=== PATIENT | male | born 1940 | race Caucasian/White ===

== ENCOUNTER 2019-05-01 18:44 | Inpatient (IN) | payer OTHER ==
[~2019-05-01] VITALS: Ht 177.8 cm; Wt 92.4 kg
[2019-05-01 20:34] LABS: BASOPHILS % (AUTO) 0.2 % (0.0-5.0); EOSINOPHILS % (AUTO) 0.6 % (0.0-8.0); HEMATOCRIT 36.8 % (42-54); LYMPHOCYTES % (AUTO) 5.3 % (21.0-51.0); MEAN CORPUSCULAR HEMOGLOBIN 31.1 pg (27.0-33.0); MEAN CORPUSCULAR HGB CONC 33.9 g/dL (32.0-36.0); MEAN CORPUSCULAR VOLUME 91.6 fL (79-99); NEUTROPHILS % (AUTO) 83.9 % (40.0-77.0); NUCLEATED RED BLOOD CELLS 0.1 % (0.0-0.19); PLATELET COUNT (AUTO) 199 K/uL (130-400); RED BLOOD CELL COUNT(AUTO) 4.02 MIL/uL (4.50-6.20); RED CELL DISTRIBUTION WIDTH 16.7 % (11.0-15.5); WHITE BLOOD COUNT (AUTO) 6.7 K/uL (4.8-10.8)
[2019-05-01 20:44] LABS: APPEARANCE,URINE Cloudy (CLEAR); BILIRUBIN,URINE Negative (NEGATIVE); COLOR,URINE Yellow (YELLOW); GLUCOSE, URINE (UA) Negative (NEGATIVE); KETONES,URINE 15 mg/dL (NEGATIVE); LEUKOCYTE ESTERASE ,URINE Large (NEGATIVE); NITRATE,URINE Positive (NEGATIVE); OCCULT BLOOD,URINE Moderate (NEGATIVE); PH,URINE 5.5 (5.0-8.0); PROTEIN,URINE POS 1+ mg/dL (NEGATIVE)
[2019-05-01 20:44] LABS: CREATININE 1.4 mg/dL (0.5-1.5); POTASSIUM 3.5 mmol/L (3.5-5.1)
[2019-05-01 20:48] LABS: INR 1.09 (0.85-1.15); PARTIAL THROMBOPLASTIN TIME 29.6 SEC (26.3-35.5); PROTHROMBIN TIME 11.4 SEC (9.6-11.6)
[2019-05-01 20:50] LABS: ALBUMIN 3.9 g/dL (3.5-5.0); BILIRUBIN,TOTAL 1.1 mg/dL (0.2-1.0); TOTAL PROTEIN, SERUM 7.2 g/dL (6.0-8.3)
[2019-05-01 21:08] LABS: BACTERIA,URINE Moderate /HPF (None Seen); SQUAMOUS EPITHELIAL CELL,UR Rare /HPF (0-2); WBC,URINE 26-50 /HPF (0-1)
[2019-05-01] MEDS ORDERED: LEVOFLOXACIN 500 MG/D5W 100 ML 100 ML ONE (21:19)
[2019-05-01] MEDS ORDERED: KETOROLAC TROMETHAMINE 15MG/ML ONE (22:57)
[2019-05-01] MEDS: SODIUM CHLORIDE 0.9% 1000ML 1,000 ML IV SCH (23:45)
[2019-05-01] MEDS ORDERED: HYDROCODONE/ACETAMINOPHEN 5/325 MG TAB PO PRN (23:45)
[2019-05-01] MEDS ORDERED: ACETAMINOPHEN 325 MG TAB PO PRN (23:45)
[2019-05-01] MEDS ORDERED: ONDANSETRON HCL 4 MG/2 ML VIAL IVP PRN (23:45)
[2019-05-01] MEDS ORDERED: HYDRALAZINE HCL 20 MG/ML VIAL IV PRN (23:45)
[2019-05-02] MEDS ORDERED: SODIUM CHLORIDE 0.9% 1000ML 1,000 ML IV ONE (00:02)
--- NOTE | 2019-05-02 01:50 | NUR ---
RECEIVED PT FROM ED. TRANSFERRED VIA BED. PT AAOX3. VS STABLE, ON RA. IV TO RIGHT AC, CURRENTLY SL. PATIENT MED BAG AND WALLET WITH HIM. WILL CONTINUE TO CLOSELY MONITOR PATIENT
[2019-05-02 01:55] VITALS: BP 143/86
[2019-05-02 04:00] VITALS: BP 131/73
[2019-05-02] MEDS ORDERED: RIVA20TA PO (04:18)
[2019-05-02] MEDS ORDERED: TAMS-1 PO (04:18)
[2019-05-02] MEDS ORDERED: ATOR10 PO (04:18)
[2019-05-02] MEDS ORDERED: FURO40TA5 PO (04:18)
[2019-05-02] MEDS ORDERED: PIOG30TA70 PO (04:18)
[2019-05-02] MEDS ORDERED: METO-391 PO (04:18)
[2019-05-02] MEDS ORDERED: PARO7.5C2 PO (04:18)
[2019-05-02] MEDS ORDERED: LISI1TAB28 PO (04:18)
[2019-05-02] MEDS ORDERED: GLIM4TAB5 PO (04:18)
[2019-05-02] MEDS ORDERED: ASPI-1197 PO (04:18)
[2019-05-02] MEDS ORDERED: GLUCAGON 1MG KIT 1 MG ML IM PRN (06:00)
[2019-05-02] MEDS ORDERED: DEXTROSE 50%-WATER 50 ML DISP.SYRIN IV PRN (06:00)
[2019-05-02 06:26] LABS: HEMATOCRIT 33.7 % (42-54); MEAN CORPUSCULAR HEMOGLOBIN 30.9 pg (27.0-33.0); MEAN CORPUSCULAR HGB CONC 33.5 g/dL (32.0-36.0); MEAN CORPUSCULAR VOLUME 92.3 fL (79-99); PLATELET COUNT (AUTO) 167 K/uL (130-400); RED BLOOD CELL COUNT(AUTO) 3.66 MIL/uL (4.50-6.20); RED CELL DISTRIBUTION WIDTH 16.9 % (11.0-15.5); WHITE BLOOD COUNT (AUTO) 7.7 K/uL (4.8-10.8)
[2019-05-02 06:34] LABS: CREATININE 1.6 mg/dL (0.5-1.5); POTASSIUM 3.6 mmol/L (3.5-5.1)
[2019-05-02 07:34] LABS: EOSINOPHILS % (MANUAL) 1 % (1-6); LYMPHOCYTES % (MANUAL) 7 % (22-44); MAN.DIFF COMMENT-IMPRESSION MANUAL DIFFERENTIAL; MONOCYTES % (MANUAL) 22 % (2-9); PLATELET MORPHOLOGY COMMENT ADEQUATE; SEGMENTED NEUTROPHILS % 70 % (40-70)
[2019-05-02 08:00] VITALS: BP 144/93
[2019-05-02] MEDS: INSULIN HUMULIN R 100 UNIT/ML 3ML SQ SCH ×4 (08:00→21:21)
[2019-05-02] MEDS ORDERED: ENOXAPARIN SODIUM 30 MG/0.3 ML SQ SCH (09:00)
[2019-05-02] MEDS ORDERED: LEVOFLOXACIN 500 MG/D5W 100 ML 100 ML IV SCH ×2 (09:00)
[2019-05-02] MEDS: MEROPENEM 500 MG VIAL IVP SCH ×2 (09:38→21:09)
[2019-05-02] MEDS: FAMOTIDINE 20MG TAB 20 MG TAB PO SCH ×2 (09:39→21:09)
[2019-05-02] MEDS: SODIUM CHLORIDE 0.9% 1000ML 1,000 ML IV SCH (09:45)
[2019-05-02 11:00] VITALS: BP 142/81
--- NOTE | 2019-05-02 14:32 | NUR ---
RD Notification - Trigger Pt admitted for UTI, OBS-status, Hx of HTN, DM. Pt tolerating 75gm CCD with no report of GI distress and PO intake at 100%, as per Pt. Pt reports continues to be hungry after meals; RD rec to add snacks between meals. Pt with request of Glucerna BID (No Chocolate). Pt LBM 05/01/19. Pt monitored labs: BUN 29, Cr 1.6, GFR 45, Glu 215, Alb 3.9. RD to continue to monitor. Please notify as additional nutrition concerns arise. Thank you. Addendum: 05/02/19 at [address] Amended: Links added.
[2019-05-02] MEDS: MORPHINE SULFATE 2 MG/ML 1ML SYG IVP PRN (15:20)
[2019-05-02 16:00] VITALS: BP 155/76
--- NOTE | 2019-05-02 17:00 | NUR ---
INITIAL MET W PT ALONE AAOX3, LIVES ALONE, BROTHER JOSHUA AND SISTER IN LAW TERESA 'LIVE NEXT DOOR', TERESA WILL PROVIDE TRANSPORT HOME , PHONE NUMBERS/CONTACTS CORRECTED ON F/SHEET AND FAXED TO REGISTRATION-- PT IS INDP IN [place], HAS A WALKER, RECENT PURCHASE, RECENT DECLINE IN FUNCTION; ADVISD HIM MAY NEED SNF, DECLINING. WILL RE VISIT WHEN PLAN OF CARE MORE DEFINED. CULTURES PENDING CM TO FOLLOW Addendum: 05/02/19 at 7080 by ISAÍAS ASENCIO RN CM Amended: Links added.
[2019-05-02 20:00] VITALS: BP 173/118
[2019-05-02] MEDS: LEVOFLOXACIN 250 MG/D5W 50ML 50 ML IVPB SCH (21:09)
[2019-05-02] MEDS: METOPROLOL TARTRATE 25 MG TAB PO SCH (21:09)
[2019-05-02] MEDS: TAMSULOSIN HCL 0.4 MG CAP.ER.24H PO SCH (21:09)
[2019-05-02] MEDS: ATORVASTATIN CALCIUM 10 MG TABLET PO SCH (21:09)
[2019-05-03] VITALS (9 sets, daily range): BP systolic 123–161; BP diastolic 69–99
[2019-05-03 05:08] LABS: HEMATOCRIT 33.3 % (42-54); MEAN CORPUSCULAR HEMOGLOBIN 30.9 pg (27.0-33.0); MEAN CORPUSCULAR HGB CONC 33.9 g/dL (32.0-36.0); MEAN CORPUSCULAR VOLUME 91.3 fL (79-99); PLATELET COUNT (AUTO) 160 K/uL (130-400); RED BLOOD CELL COUNT(AUTO) 3.65 MIL/uL (4.50-6.20); RED CELL DISTRIBUTION WIDTH 17.4 % (11.0-15.5); WHITE BLOOD COUNT (AUTO) 6.6 K/uL (4.8-10.8)
[2019-05-03 05:28] LABS: CREATININE 1.5 mg/dL (0.5-1.5); PHOSPHORUS 2.6 mg/dL (2.5-4.9); POTASSIUM 3.6 mmol/L (3.5-5.1)
[2019-05-03] MEDS: INSULIN HUMULIN R 100 UNIT/ML 3ML SQ SCH ×4 (06:27→22:03)
[2019-05-03] MEDS: MEROPENEM 500 MG VIAL IVP SCH (07:41)
[2019-05-03] MEDS: FAMOTIDINE 20MG TAB 20 MG TAB PO SCH ×2 (07:42→22:03)
[2019-05-03] MEDS: PAROXETINE HCL 20 MG TABLET PO SCH (07:42)
[2019-05-03] MEDS: ASPIRIN 81MG TAB.CHEW PO SCH (07:42)
[2019-05-03] MEDS: METOPROLOL TARTRATE 25 MG TAB PO SCH ×2 (07:42→22:02)
[2019-05-03] MEDS: SODIUM CHLORIDE 0.9% 1000ML 1,000 ML IV SCH ×2 (07:43→17:55)
--- NOTE | 2019-05-03 08:00 | NUR ---
SCABS ON RIGHT KNEES AND BRUISING ON BACK FROM FALL AT HOME Addendum: 05/03/19 at 1815 by CHUY GREGORY RN RN Amended: Links added.
--- NOTE | 2019-05-03 08:17 | NUR ---
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
[2019-05-03] MEDS ORDERED: FUROSEMIDE 40 MG TABLET PO SCH (09:00)
[2019-05-03] MEDS ORDERED: RIVAROXABAN 20 MG TABLET PO SCH (09:00)
[2019-05-03] MEDS ORDERED: LEVOFLOXACIN 250 MG/D5W 50ML 50 ML IVPB SCH (09:00)
[2019-05-03] MEDS: CEFTRIAXONE SODIUM 1 GM IVP SCH (09:38)
[2019-05-03] MEDS: LEVOFLOXACIN 250 MG/D5W 50ML 50 ML IVPB SCH (22:02)
[2019-05-03] MEDS: ATORVASTATIN CALCIUM 10 MG TABLET PO SCH (22:02)
[2019-05-03] MEDS: TAMSULOSIN HCL 0.4 MG CAP.ER.24H PO SCH (22:02)
[2019-05-04] VITALS: BP 145/91
[2019-05-04 04:00] VITALS: BP 161/96
[2019-05-04] MEDS: INSULIN HUMULIN R 100 UNIT/ML 3ML SQ SCH ×4 (07:05→22:15)
[2019-05-04 08:00] VITALS: BP 167/76
[2019-05-04] MEDS: CEFTRIAXONE SODIUM 1 GM IVP SCH (08:35)
[2019-05-04] MEDS: METOPROLOL TARTRATE 25 MG TAB PO SCH ×2 (08:36→22:05)
[2019-05-04] MEDS: FAMOTIDINE 20MG TAB 20 MG TAB PO SCH ×2 (08:36→22:05)
[2019-05-04] MEDS: ASPIRIN 81MG TAB.CHEW PO SCH (08:36)
[2019-05-04] MEDS: PAROXETINE HCL 20 MG TABLET PO SCH (08:36)
[2019-05-04] MEDS: ENOXAPARIN SODIUM 30 MG/0.3 ML SQ SCH (08:38)
[2019-05-04 12:36] VITALS: BP 160/87
--- NOTE | 2019-05-04 16:00 | NUR ---
SPOKE TO PT ABOUT SNF ORDER PT DECLINING SNF. WILL RE VISIT AFTER PT EVAL
[2019-05-04 17:02] VITALS: BP 168/96
[2019-05-04 20:47] VITALS: BP 164/97
[2019-05-04] MEDS: SODIUM CHLORIDE 0.9% 1000ML 1,000 ML IV SCH (22:04)
[2019-05-04] MEDS: ATORVASTATIN CALCIUM 10 MG TABLET PO SCH (22:05)
[2019-05-04] MEDS: TAMSULOSIN HCL 0.4 MG CAP.ER.24H PO SCH (22:05)
[2019-05-04] MEDS: LEVOFLOXACIN 250 MG/D5W 50ML 50 ML IVPB SCH (22:05)
[2019-05-05 00:47] VITALS: BP 165/90
[2019-05-05 04:48] VITALS: BP 163/101
[2019-05-05 05:04] LABS: HEMATOCRIT 32.6 % (42-54); MEAN CORPUSCULAR HEMOGLOBIN 31.2 pg (27.0-33.0); MEAN CORPUSCULAR VOLUME 91.7 fL (79-99); PLATELET COUNT (AUTO) 163 K/uL (130-400); RED BLOOD CELL COUNT(AUTO) 3.56 MIL/uL (4.50-6.20); WHITE BLOOD COUNT (AUTO) 5.5 K/uL (4.8-10.8)
[2019-05-05 05:14] LABS: CREATININE 1.3 mg/dL (0.5-1.5); POTASSIUM 3.8 mmol/L (3.5-5.1)
[2019-05-05] MEDS: INSULIN HUMULIN R 100 UNIT/ML 3ML SQ SCH ×4 (06:24→20:07)
[2019-05-05] MEDS: SODIUM CHLORIDE 0.9% 1000ML 1,000 ML IV SCH ×2 (06:41→17:45)
[2019-05-05 08:00] VITALS: BP 162/101
[2019-05-05] MEDS: CEFTRIAXONE SODIUM 1 GM IVP SCH (10:38)
[2019-05-05] MEDS: ASPIRIN 81MG TAB.CHEW PO SCH (10:38)
[2019-05-05] MEDS: FAMOTIDINE 20MG TAB 20 MG TAB PO SCH ×2 (10:38→19:59)
[2019-05-05] MEDS: PAROXETINE HCL 20 MG TABLET PO SCH (10:38)
[2019-05-05] MEDS: METOPROLOL TARTRATE 25 MG TAB PO SCH ×2 (10:38→19:59)
[2019-05-05] MEDS: ENOXAPARIN SODIUM 30 MG/0.3 ML SQ SCH (10:38)
[2019-05-05 12:00] VITALS: BP 157/87
--- NOTE | 2019-05-05 15:02 | NUR ---
DR SHELLY BRAVO ROUNDED AT THIS TIME. HE STATES PT IS OK TO DISCHARGE FROM HIS STANDPOINT
[2019-05-05 16:00] VITALS: BP 153/70
--- NOTE | 2019-05-05 16:29 | NUR ---
[facility] RE[facility]ERR[facility] cm spoke to pt regarding d/c planning. CM explained MD recommendations for short term snf/rehab. Pt with hx of falls and lives alone. Pt verbalized understanding and agreed to referral. CM offered in network choices. States he had a family member at [facility] and is agreeable to placement at facility. CM obtained [facility] and faxed referral. CM explained to pt that insurance approval is pending and anticipate d/c to be Tuesday. GELACIO also updated Melba Medrano BUFFING WHEEL OPERATOR with above. Nursing also updated. GELACIO contacted Yamila with [facility]. States she will eval pt over the weekend. CM to f/u. Addendum: 05/05/19 at 1632 by ALTAGRACIA STOKES CM Amended: Links added.
[2019-05-05] MEDS: TAMSULOSIN HCL 0.4 MG CAP.ER.24H PO SCH (19:58)
[2019-05-05] MEDS: LEVOFLOXACIN 250 MG/D5W 50ML 50 ML IVPB SCH (19:59)
[2019-05-05] MEDS: ATORVASTATIN CALCIUM 10 MG TABLET PO SCH (19:59)
[2019-05-05 20:00] VITALS: BP 188/101
--- NOTE | 2019-05-05 23:00 | NUR ---
Nursing Note Pt is getting anxious and agitated. Pt wants someone in the room to talk to.
[2019-05-05] MEDS: HYDRALAZINE HCL 20 MG/ML VIAL IV PRN (23:19)
[2019-05-05] MEDS: TEMAZEPAM 15 MG CAPSULE PO PRN (23:38)
--- NOTE | 2019-05-05 23:59 | NUR ---
Nursing Note Spoke with Dr. Brito about pt getting agitated and upset for being alone. Pt is getting short of breath from agitation and with talking to pt he will calm down. Oxygen sats are 97% room air. Dr. Brito gave order for 1:1 sitter and 1mg ativan IV q8hr PRN.
[2019-05-06] VITALS (9 sets, daily range): BP systolic 136–179; BP diastolic 75–107
[2019-05-06] MEDS ORDERED: LORAZEPAM 2 MG/ML 1 ML VIAL IVP PRN (00:15)
[2019-05-06] MEDS: MORPHINE SULFATE 2 MG/ML 1ML SYG IVP PRN (00:54)
[2019-05-06] MEDS: SODIUM CHLORIDE 0.9% 1000ML 1,000 ML IV SCH (02:52)
[2019-05-06 05:44] LABS: MEAN CORPUSCULAR HEMOGLOBIN 31.3 pg (27.0-33.0); MEAN CORPUSCULAR VOLUME 92.2 fL (79-99); PLATELET COUNT (AUTO) 146 K/uL (130-400); RED BLOOD CELL COUNT(AUTO) 3.47 MIL/uL (4.50-6.20); RED CELL DISTRIBUTION WIDTH 16.9 % (11.0-15.5); WHITE BLOOD COUNT (AUTO) 6.2 K/uL (4.8-10.8)
[2019-05-06 05:55] LABS: CREATININE 1.1 mg/dL (0.5-1.5); POTASSIUM 4.2 mmol/L (3.5-5.1)
[2019-05-06] MEDS: INSULIN HUMULIN R 100 UNIT/ML 3ML SQ SCH ×4 (06:22→20:44)
[2019-05-06] MEDS: CEFTRIAXONE SODIUM 1 GM IVP SCH (10:31)
[2019-05-06] MEDS: METOPROLOL TARTRATE 25 MG TAB PO SCH ×2 (10:32→20:27)
[2019-05-06] MEDS: FAMOTIDINE 20MG TAB 20 MG TAB PO SCH ×2 (10:32→20:26)
[2019-05-06] MEDS: PAROXETINE HCL 20 MG TABLET PO SCH (10:32)
[2019-05-06] MEDS: ASPIRIN 81MG TAB.CHEW PO SCH (10:32)
[2019-05-06] MEDS: ENOXAPARIN SODIUM 30 MG/0.3 ML SQ SCH (10:34)
[2019-05-06] MEDS: HYDRALAZINE HCL 20 MG/ML VIAL IV PRN ×2 (17:10→21:21)
[2019-05-06] MEDS: TEMAZEPAM 15 MG CAPSULE PO PRN (20:26)
[2019-05-06] MEDS: ATORVASTATIN CALCIUM 10 MG TABLET PO SCH (20:27)
[2019-05-06] MEDS: TAMSULOSIN HCL 0.4 MG CAP.ER.24H PO SCH (20:27)
[2019-05-06] MEDS: LEVOFLOXACIN 250 MG/D5W 50ML 50 ML IVPB SCH (20:27)
--- NOTE | 2019-05-06 21:16 | NUR ---
PAGED BENCHMARK WAITING FOR CALL BACK. PT WITH LABORED BREATHING AT THIS
--- NOTE | 2019-05-06 21:47 | NUR ---
WLILAM RETURNED PAGE ABG, CT OF THE HEAD, CXR, DUONEBS X3 ORDERED AT THIS TIME. [facility].
[2019-05-06] MEDS ORDERED: IPRATROPIUM/ALBUTEROL SULFATE 3 ML SOLUTION IH ONE ×2 (22:00→22:16)
[2019-05-06 22:08] LABS: ABG BASE EXCESS -3.8 mmol/L (-2.0-3.0); ABG HCO3 21.4 mmol/L (21.0-28.0); ABG OXYGEN SATURATION 97.2 % (95.0-99.0); ABG PCO2 40 mmHg (35-48)
[2019-05-06] MEDS ORDERED: IPRATROPIUM/ALBUTEROL SULFATE 3 ML SOLUTION IH STA (22:33)
[2019-05-06] MEDS ORDERED: IPRATROPIUM/ALBUTEROL SULFATE 3 ML SOLUTION IH SCH (22:45)
--- NOTE | 2019-05-06 22:54 | NUR ---
SHAN QUARLES INFORMED WILLAM THAT PATIENT IS UNABLE TO CONSENT FOR HIMSELF TO HAVE THE CT ANGIO OF THE HEAD, THERE IS NO FAMILY AND THE PATIENT DOES NOT WANT FOR HIS EMERGENCY CONTACT [facility] TO BE CALLED. ORDERS WERE CHANGED FOR CT W/O CONTRAST, AND TO TRANSFER TO PCCU.
[2019-05-06] MEDS ORDERED: IOHEXOL 350 MG/ML 100ML INFUS..BTL IV ONE (23:36)
--- NOTE | 2019-05-06 23:38 | NUR ---
DENTAL OFFICER PAGED PHYSICIAN ORDERS WERE GIVEN VIA T/O TO DO CT ANGIO OF THE CHEST, BMP, CBC, BNP, DDIMER, PLACE ON BIPAP AND TRANSFER TO ICU. ORDERS PLACED IN [facility]
--- NOTE | 2019-05-06 23:56 | NUR ---
ASSESSMENT: REPORT RECEIVED FROM LILIBETH MONZON . PATIENT ARRIVED TO ROOM 216 S/P CT ANGIO CHEST / CT BRAIN. PATIENT LETHARGIC, RESTLESS, UNCOOPERATIVE, ORIENTED X 1, MOVES ALL EXTREMITIES, LAK[place] 3 MM SLUGGISH EQUAL. LUNGS DIMINISHED UPPER, WHEEZING LOWER LOBES, LABORED BELLY BREATHING, PLACED ON BIPAP 16/8 RATE 16 40% FIO2, SOME AUDIBLE EXPIRATORY WHEEZING, ABDOMEN LARGE ROUND, SOFT, BOWEL SOUNDS ACTIVE, PEDAL AND RADIAL PULSES STRONG BILATERALLY, A FIB RATE 129. ADULT BRIEF ON, WAFFLE MATTRESS. SEE COMPLETED ASSESSMENT.
[2019-05-07] VITALS (34 sets, daily range): BP systolic 116–151; BP diastolic 59–95
[2019-05-07 00:28] LABS: HEMATOCRIT 29.6 % (42-54); MEAN CORPUSCULAR HGB CONC 33.9 g/dL (32.0-36.0); MEAN CORPUSCULAR VOLUME 91.6 fL (79-99); PLATELET COUNT (AUTO) 142 K/uL (130-400); RED BLOOD CELL COUNT(AUTO) 3.23 MIL/uL (4.50-6.20); RED CELL DISTRIBUTION WIDTH 16.7 % (11.0-15.5); WHITE BLOOD COUNT (AUTO) 5.3 K/uL (4.8-10.8)
[2019-05-07 00:35] LABS: CREATININE 1.2 mg/dL (0.5-1.5); POTASSIUM 3.9 mmol/L (3.5-5.1)
[2019-05-07 00:36] LABS: EOSINOPHILS % (MANUAL) 2 % (1-6); LYMPHOCYTES % (MANUAL) 12 % (22-44); MONOCYTES % (MANUAL) 6 % (2-9); SEGMENTED NEUTROPHILS % 80 % (40-70)
[2019-05-07 00:37] LABS: MAN.DIFF COMMENT-IMPRESSION MANUAL DIFFERENTIAL; PLATELET MORPHOLOGY COMMENT ADEQUATE
[2019-05-07 00:40] LABS: B-TYPE NATRIURETIC PEPTIDE 175 pg/mL (0-100)
--- NOTE | 2019-05-07 01:20 | NUR ---
CT ANGIO CHEST / CT HEAD AND LAB RESULTS REPORTED TO Almaz QUARLES NP-NEW ORDERS RECEIVED
[2019-05-07] MEDS ORDERED: ZOSYN 3.375GM+NS 50ML 50 ML IV ONE (01:38)
[2019-05-07] MEDS ORDERED: FUROSEMIDE 10 MG/ML 10ML VIAL ONE (01:39)
[2019-05-07] MEDS: ZOSYN 3.375GM+NS 50ML 50 ML IV SCH ×2 (02:00→09:22)
[2019-05-07] MEDS ORDERED: FUROSEMIDE 10 MG/ML 10ML VIAL IVP SCH (02:00)
[2019-05-07] MEDS: IPRATROPIUM/ALBUTEROL SULFATE 3 ML SOLUTION IH SCH ×6 (02:10→18:25)
[2019-05-07] MEDS ORDERED: CARV12.511 PO (03:22)
[2019-05-07] MEDS ORDERED: ISOS30TA6 PO (03:22)
[2019-05-07] MEDS ORDERED: LISI10TA7 PO (03:22)
[2019-05-07] MEDS ORDERED: METF-446 PO (03:22)
[2019-05-07] MEDS ORDERED: LORA10TA7 PO (03:22)
[2019-05-07] MEDS ORDERED: ATOR40TA69 PO (03:22)
[2019-05-07] MEDS ORDERED: CALC-1105 PO (03:22)
[2019-05-07] MEDS ORDERED: LETR2.5T6 PO (03:22)
[2019-05-07] MEDS ORDERED: CLOP75TA32 PO (03:22)
[2019-05-07 03:26] LABS: HEMATOCRIT 29.2 % (42-54); MEAN CORPUSCULAR HEMOGLOBIN 31.2 pg (27.0-33.0); MEAN CORPUSCULAR HGB CONC 34.1 g/dL (32.0-36.0); MEAN CORPUSCULAR VOLUME 91.5 fL (79-99); PLATELET COUNT (AUTO) 146 K/uL (130-400); RED CELL DISTRIBUTION WIDTH 16.8 % (11.0-15.5)
[2019-05-07 03:42] LABS: CREATININE 1.3 mg/dL (0.5-1.5); POTASSIUM 4.3 mmol/L (3.5-5.1)
[2019-05-07] MEDS: INSULIN HUMULIN R 100 UNIT/ML 3ML SQ SCH ×4 (06:45→22:11)
--- NOTE | 2019-05-07 08:18 | NUR ---
SPOKE TO PT ABOUT SNF ORDER PT DECLINING SNF. WILL RE VISIT AFTER PT EVAL Addendum: 05/07/19 at 0819 by ISAÍAS ASENCIO RN CM Amended: Links added.
[2019-05-07] MEDS: ASPIRIN 81MG TAB.CHEW PO SCH (08:21)
[2019-05-07] MEDS: PAROXETINE HCL 20 MG TABLET PO SCH (08:21)
[2019-05-07] MEDS: METOPROLOL TARTRATE 25 MG TAB PO SCH (08:21)
[2019-05-07] MEDS: FAMOTIDINE 20MG TAB 20 MG TAB PO SCH ×2 (08:21→20:32)
--- NOTE | 2019-05-07 08:21 | NUR ---
NOTE AT 818 LATE ENTRY SPOOKE TO PT ABOUT SNF ON FRIDAY 05/04 AT 1600.
--- NOTE | 2019-05-07 09:30 | NUR ---
DYSPHAGIA EVAL COMPLETE. -S/S OF ASPIRATION. RECOMMEND REGULAR, THIN LIQUID DIET; PILLS WHOLE WITH LIQUIDS. Addendum: 05/07/19 at 1125 by VITALIY DELGADO, [facility] ST Amended: Links added.
[2019-05-07] MEDS ORDERED: FUROSEMIDE 10 MG/ML 4ML VIAL IV SCH (14:45)
[2019-05-07] MEDS ORDERED: PHARMACY COMMUNICATION MISC SCH (14:45)
[2019-05-07] MEDS ORDERED: LEVOFLOXACIN 500 MG/D5W 100 ML 100 ML IV SCH (15:00)
[2019-05-07 16:51] LABS: CREATINE KINASE, TOTAL 39 U/L (21-232); MYOGLOBIN 93 ng/mL (10-92); TROPONIN I < 0.04 ng/mL (0.00-0.06)
--- NOTE | 2019-05-07 19:56 | NUR ---
KENJI QUARLES,EDUCATION RESEARCH ANALYST NOTIFIED PT AA0X3 , CALM IN NO DISTRESS, , PT PASSED SPEECH EVALUATION AND REQUESTING REGULAR DIET, HR 130 A FIB- PT EATING AND WILL RECEIVE LOPRESSOR THIS EVENING. NEW ORDERS TO CHANGE RESP DUONEB TO PRN, BIPAP PRN,DC RESTORIL, REGULAR DIET, AM LABS.
[2019-05-07] MEDS: TAMSULOSIN HCL 0.4 MG CAP.ER.24H PO SCH (20:32)
[2019-05-07] MEDS: METOPROLOL TARTRATE 50 MG TAB PO SCH (20:32)
[2019-05-07] MEDS: ATORVASTATIN CALCIUM 10 MG TABLET PO SCH (20:32)
[2019-05-07] MEDS ORDERED: IPRATROPIUM/ALBUTEROL SULFATE 3 ML SOLUTION IH PRN (22:00)
[2019-05-08] VITALS (27 sets, daily range): BP systolic 112–156; BP diastolic 49–95
[2019-05-08 03:15] LABS: BASOPHILS % (AUTO) 0.3 % (0.0-5.0); EOSINOPHILS % (AUTO) 4.3 % (0.0-8.0); HEMATOCRIT 30.4 % (42-54); LYMPHOCYTES % (AUTO) 11.5 % (21.0-51.0); MEAN CORPUSCULAR HEMOGLOBIN 31.2 pg (27.0-33.0); MEAN CORPUSCULAR HGB CONC 34.2 g/dL (32.0-36.0); MEAN CORPUSCULAR VOLUME 91.2 fL (79-99); MONOCYTES % (AUTO) 11.5 % (3.0-13.0); NEUTROPHILS % (AUTO) 72.4 % (40.0-77.0); PLATELET COUNT (AUTO) 161 K/uL (130-400); RED BLOOD CELL COUNT(AUTO) 3.33 MIL/uL (4.50-6.20); RED CELL DISTRIBUTION WIDTH 16.8 % (11.0-15.5); WHITE BLOOD COUNT (AUTO) 5.6 K/uL (4.8-10.8)
[2019-05-08 03:18] LABS: CREATININE 1.6 mg/dL (0.5-1.5); POTASSIUM 4.3 mmol/L (3.5-5.1)
[2019-05-08 03:22] LABS: B-TYPE NATRIURETIC PEPTIDE 65 pg/mL (0-100)
[2019-05-08] MEDS: INSULIN HUMULIN R 100 UNIT/ML 3ML SQ SCH ×4 (06:05→20:46)
[2019-05-08] MEDS: FAMOTIDINE 20MG TAB 20 MG TAB PO SCH ×2 (08:04→20:32)
[2019-05-08] MEDS: PAROXETINE HCL 20 MG TABLET PO SCH (08:04)
[2019-05-08] MEDS: METOPROLOL TARTRATE 50 MG TAB PO SCH ×2 (08:04→20:32)
[2019-05-08] MEDS: ASPIRIN 81MG TAB.CHEW PO SCH (08:04)
[2019-05-08] MEDS: FLUTICASONE PROPIONATE 50MCG/SPRAY 16 GM BOTTLE EN SCH (09:27)
[2019-05-08] MEDS ORDERED: RIVAROXABAN 20 MG TABLET PO SCH (11:15)
[2019-05-08] MEDS: LEVOFLOXACIN 250 MG/D5W 50ML 50 ML IVPB SCH (14:15)
--- NOTE | 2019-05-08 15:50 | NUR ---
ALHAJI GATES, MANAGER CORPORATE FROM DR. HAYLEY SCHMIDT'S OFFICE CALLED AND REQUESTED UPDATE, H&P, LABS AND MEDS THAT PT IS ON. GIVEN INFORMATION. DR. HAYLEY SCHMIDT WILL CALL BACK WITH RECOMMENDATIONS. Addendum: 05/08/19 at 1553 by PAUL CARRION RN RN DOCUMENTED ON WRONG PATIENT.
--- NOTE | 2019-05-08 16:06 | NUR ---
RD FOLLOW UP NOTE Pt tolerating current diet order with no report of GI distress. Pt reports has not received Glucerna since 2 days ago. Pt reports dislikes foods;RD updated food preferences. Pt LBM 05/04/19. Pt monitored labs: BUN 28, Cr 1.6, GFR 45, Glu 209. RD to continue to monitor. Please notify RD as additional nutrition concerns arise. Thank you. Addendum: 05/08/19 at [address] Amended: Links added.
--- NOTE | 2019-05-08 16:15 | NUR ---
TRANSFER REPORT GIVEN TO LILIBETH REYES AND PATIENT MOVED TO ROOM 201; ALL BELONGINGS, INCLUDING CELL PHONE, WALLET, CLOTHES, SHOES, AND CELL PHONE SEWER INSPECTOR REMAIN WITH PATIENT
--- NOTE | 2019-05-08 16:20 | NUR ---
TRANSFER FROM ICU RECEIVED PT FROM FRANKY MCELROY, SITTING IN WHEELCHAIR, A&OX3, CALM COOPERATIVE AND DOES NOT APPEAR TO BE IN ANY DISTRESS NOR ANY NEURO DEFICITS PRESENT. PT DENIES PAIN, SOB, NAUSEA. DEGROOT CATH IN PLACE WITH BLOOD TINGED URINE IN COLLECTION BAG. PT AMBULATED TO CHAIR FROM WHEELCHAIR, GAIT SLOW AND UNSTEADY WITH 1-2 PERSON ASSIST. RESTING COMFORTABLY, CALL LIGHT WITHIN REACH.
[2019-05-08] MEDS ORDERED: POTASSIUM CHLORIDE 10% ELIXIR 20 MEQ/15 ML UDCUP PO PRN (16:45)
[2019-05-08] MEDS ORDERED: LIDOCAINE HCL-MPF 1% 2ML VIAL IV PRN (16:45)
[2019-05-08] MEDS ORDERED: POTASSIUM CHLORIDE 20 MEQ ERTAB PO PRN (16:45)
[2019-05-08] MEDS ORDERED: POTASSIUM CHLORIDE 10MEQ/100ML 100 ML IV PRN (16:45)
--- NOTE | 2019-05-08 19:56 | NUR ---
ASSESSMENT PATIENT IS RESTING IN BED, AA0X4. NO SIGNS OF DISTRESS. NO COMPLAINTS OF PAIN. NO SIGNS OR COMPLAINTS OF SHORTNESS OF BREATH. PATIENTS CALL LIGHT AND BEDSIDE TABLE IS WITHIN REACH. PATIENT IS REINFORCED TO CALL FOR ANY NEEDS. DEGROOT IN PLACE AND IS AT BEDSIDE PATENT AND FREEFLOWING. NO QUESTIONS, CONCERNS, OR NEEDS VOICED AT THIS TIME.
[2019-05-08] MEDS: TAMSULOSIN HCL 0.4 MG CAP.ER.24H PO SCH (20:32)
[2019-05-08] MEDS: ATORVASTATIN CALCIUM 10 MG TABLET PO SCH (20:32)
--- NOTE | 2019-05-08 23:00 | NUR ---
CONFUSION PATIENT HAD AN EPISODE OF CONFUSION WAS NOT ALERT TO PLACE OR TIME. PATIENT BECAME SLIGHTLY AGGRESSIVE AND WAS ATTEMPTING TO GET OUT OF BED. PATIENT WAS TUGGING ON DEGROOT CATHETER THAT AGGRAVATED HIS HEMATURIA. PATIENT WAS ASSISTED TO THE BATHROOM FOR A BOWEL MOVEMENT. PATIENT WAS REORIENTED HELPED BACK INTO BED AND GIVEN CALL LIGHT. REINFORCED TO CALL FOR ANY NEEDS.
--- NOTE | 2019-05-09 | NUR ---
ASSESSMENT PATIENT IS RESTING IN BED. NO SIGNS OF SHORTNESS OF BREATH. NO SIGNS OF DISTRESS. NO COMPLAINTS OF PAIN AT THIS TIME. PATIENTS CALL LIGHT AND BEDSIDE TABLE ARE WITHIN REACH. REINFORCED TO CALL FOR ANY NEEDS. BED ALARM IS ON.
[2019-05-09 03:27] VITALS: BP 155/84
--- NOTE | 2019-05-09 04:00 | NUR ---
ASSESSMENT PATIENT IS RESTING IN BED. NO COMPLAINTS OF PAIN AT THIS TIME. NO SIGNS OF DISTRESS. NO SHORTNESS OF BREATH. CALL LIGHT IS WITHIN REACH. PATIENT VOICED NO CONCERNS, QUESTIONS, COMPLAINTS, OR NEEDS AT THIS TIME.
[2019-05-09 04:18] LABS: ALBUMIN 2.9 g/dL (3.5-5.0); BILIRUBIN,TOTAL 0.7 mg/dL (0.2-1.0); CREATININE 1.5 mg/dL (0.5-1.5); POTASSIUM 4.4 mmol/L (3.5-5.1); TOTAL PROTEIN, SERUM 5.9 g/dL (6.0-8.3)
[2019-05-09] MEDS: INSULIN HUMULIN R 100 UNIT/ML 3ML SQ SCH ×3 (06:26→16:50)
[2019-05-09 08:25] VITALS: BP 175/114
[2019-05-09] MEDS ORDERED: FUROSEMIDE 20 MG TABLET PO SCH ×2 (09:00→09:15)
[2019-05-09] MEDS ORDERED: RIVAROXABAN 20 MG TABLET PO SCH (09:00)
[2019-05-09] MEDS ORDERED: FUROSEMIDE 10 MG/ML 4ML VIAL IV SCH (09:15)
[2019-05-09] MEDS: ASPIRIN 81MG TAB.CHEW PO SCH (09:43)
[2019-05-09] MEDS: FAMOTIDINE 20MG TAB 20 MG TAB PO SCH (09:43)
[2019-05-09] MEDS: METOPROLOL TARTRATE 50 MG TAB PO SCH (09:43)
[2019-05-09] MEDS: PAROXETINE HCL 20 MG TABLET PO SCH (09:44)
[2019-05-09] MEDS: FLUTICASONE PROPIONATE 50MCG/SPRAY 16 GM BOTTLE EN SCH (09:44)
--- NOTE | 2019-05-09 11:25 | NUR ---
DC PLAN INFO SENT TO [facility] NEW PACKET SINCE THE ORIGINAL PACKET WAS FROM LAST WEEK. PATIENT AMBULATED 4 FT. PAULO DONE WILL GO VIA FACILITY VAN. Addendum: 05/09/19 at 1127 by BRIAN LOPEZ RN CM Amended: Links added.
[2019-05-09 12:36] VITALS: BP 133/95
[2019-05-09] MEDS: LEVOFLOXACIN 250 MG/D5W 50ML 50 ML IVPB SCH (15:15)
[2019-05-09 16:33] VITALS: BP 138/78
== END 2019-05-09 18:55 | DRG 552 ==
LOC: EDH 18:44 → OBSVTOIN 23:00 → EDHIP 23:00 → 3BH 05-02 01:50 → 3DH 05-06 17:35 → 2CH 05-06 23:55 → 2AH 05-08 15:56
PROVIDERS: ADMIT Internal Medicine; ATTEND Internal Medicine
DX: M48.00 Spinal stenosis, site unspecified (principal); N17.9 Acute kidney failure, unspecified; N39.0 Urinary tract infection, site not specified; J90 Pleural effusion, not elsewhere classified; M48.061 Spinal stenosis, lumbar region without neurogenic claudication; E86.0 Dehydration; B96.1 Klebsiella pneumoniae [K. pneumoniae] as the cause of diseases classified elsewhere; R32 Unspecified urinary incontinence; N18.9 Chronic kidney disease, unspecified; E11.22 Type 2 diabetes mellitus with diabetic chronic kidney disease; I12.9 Hypertensive chronic kidney disease with stage 1 through stage 4 chronic kidney disease, or unspecified chronic kidney disease; E87.70 Fluid overload, unspecified; R06.03 Acute respiratory distress; D64.9 Anemia, unspecified; I48.91 Unspecified atrial fibrillation; F32.9 Major depressive disorder, single episode, unspecified; E78.5 Hyperlipidemia, unspecified; I25.10 Atherosclerotic heart disease of native coronary artery without angina pectoris; M19.90 Unspecified osteoarthritis, unspecified site; N40.0 Benign prostatic hyperplasia without lower urinary tract symptoms; W19.XXXA Unspecified fall, initial encounter; Y93.89 Activity, other specified; Y92.89 Other specified places as the place of occurrence of the external cause; Y99.8 Other external cause status; Z79.01 Long term (current) use of anticoagulants; Z87.442 Personal history of urinary calculi; Z87.891 Personal history of nicotine dependence; Z95.1 Presence of aortocoronary bypass graft
CPT/HCPCS: 36415; 36600; 70450; 71045; 71275; 72131; 72148; 74176; 76770; 80048; 80053; 81001; 82550; 82803; 82948; 83605; 83874; 83880; 84100; 84484; 85025; 85027; 85378; 85610; 85730; 87040; 87077; 87088; 87186; 92610; 93005; 93306; 93970; 94640; 94660; 94664; 97039; A4344; G0378; J0360; J0696; J1650; J1815; J1885; J1940; J1956; J2185; J2543; J7030; Q9967

== ENCOUNTER → 2023-03-09 | Outpatient (CLI) | payer MEDICARE ==
[~2023-03-09] MED LIST: ACET325T51 PO; AEC81 PO; AMOX-429 PO; ASPI-1197 PO; ATOR10 PO; ATOR10TA69 PO; ATOR40TA69 PO; CALC-1105 PO; CALC-125 PO; CARV12.511 PO; CLOP75TA32 PO; DEXT1DRO OP; FLUT16H NASAL; FOLI0.8T43 PO; FURO40TA5 PO; GLIM2TAB30 PO; GLIM4TAB36 PO; GUAI100S13 PO; HYDR12.54 PO; ISOS30TA92 PO; LETR2.5T7 PO; LISI10TA24 PO; LISI1TAB51 PO; LORA10TA7 PO; MELA5TAB14 PO; METF-446 PO; METF-910 PO; METO-391 PO; METO25TA6 PO; ONDA-105 PO; PARO10TA71 PO; PARO7.5C2 PO; PIOG30TA70 PO; RIVA20TA PO; TAMS-1 PO
== END | disposition home or self-care (01) ==
LOC: SHCH 08:46
PROVIDERS: ATTEND Internal Medicine Cardiovascular Disease
DX: I08.1 Rheumatic disorders of both mitral and tricuspid valves (principal); I25.10 Atherosclerotic heart disease of native coronary artery without angina pectoris; Z95.2 Presence of prosthetic heart valve
CPT/HCPCS: 93306